=== PATIENT | male | born 1950 | race Caucasian/White ===

== ENCOUNTER → 2016-10-17 | Day surgery (SDC) | payer OTHER ==
[~2016-10-17] VITALS: Ht 180.3 cm; Wt 74.8 kg
[~2016-10-17] MED LIST: ASPIRIN EC81 M1 PO; FORFIVO XL450 MG PO; LAMICTAL100 M2 PO; METOPROLOL TART25 M1 PO; PRAVACHOL40 M1 PO; PRILOSEC OTC20 M1 PO; PRINIVIL10 M1 PO
--- NOTE | 2016-10-17 11:45 | Operative Report ---
Operative/Inv Procedure Report Surgery Date: 10/17/16 Name of Procedure: Left shoulder arthroscopy, extensive debridement, subacromial decompression, arthroscopic rotator cuff repair Pre-Operative Diagnosis: Left shoulder rotator cuff tear Post-Operative Diagnosis: Left shoulder rotator cuff tear Estimated Blood Loss: scant Surgeon/Vice President Fixed Income: TAMY LYNCH,DAVID RED Anesthesia: moderate sedation, block Complications: None Condition: Stable to PACU Operative Indication: This is a 66-year-old male with long-standing left shoulder pain. He has failed conservative care. He was noted to have a proximal biceps rupture several weeks ago. MRI showed a full-thickness rotator cuff tear. Risks and benefits of the procedure were discussed with the patient at length. Risks include but are not limited to nerve damage, muscle damage, infection, blood loss, blood clots, pulmonary embolus, and even . The patient agreed to the above risks and elected to proceed with surgery. Operative/Procedure Note Note: The patient was taken to the operating room and placed in the lateral decubitus position with the operative side up after anesthesia was induced. The upper extremity was prepped and draped in the normal sterile fashion. A timeout was performed prior to incision. The site marking was visualized prior to incision. IV antibiotics were given prior to incision. After the upper extremity was prepped and draped a spinal needle was used to insufflate the shoulder joint with saline. An 11 blade was used to incise the skin for the posterior portal placement. The cannula was then placed. The camera was inserted. An anterior portal was established just proximal and lateral to the coracoid with a spinal needle and an 11 blade. The diagnostic arthroscopy was then performed which showed the above findings. A shaver was used to debride the stump of the biceps tendon. A wand was also used to stabilize the base of this. A shaver was used to debride the anterior superior labrum. The shaver was then used to debride the undersurface of the infraspinatus tendon. The undersurface of the supraspinatus tear was also debrided. The shaver was then used to debride the leading edge of the subscapularis insertion. Next the subacromial space was entered through the posterior portal. A lateral portal was established with a spinal needle and an 11 blade. A blunt probe was inserted through the lateral portal. Next the shaver was inserted and a subacromial bursectomy was performed. Any bleeding vessels were identified and cauterized. The shaver was used to debride any bursal tissue on the undersurface of the acromion and surrounding the humeral head. The coracoacromial ligament was taken down with a wand. Care was taken to protect the rotator cuff tissue and only take bursal tissue. A wand was then used to further take down the soft tissue on the undersurface of the acromion. A bur was then inserted and the acromioplasty was then begun starting at the anterolateral edge of the acromion. This was extended down to the level of the acromioclavicular joint. This was then tapered further posteriorly. An 8 mm PassPort cannula was placed through the lateral portal site. A 6 mm PassPort cannula was placed through the anterior portal. An accessory portal was made just off of the lateral border the acromion with a spinal needle and an 11 blade. An 8 mm PassPort cannula was placed through this. The bur was used to prepare the rotator cuff footprint back to a healthy bed of bleeding bone for later rotator cuff repair. Any bursal adhesions superior to the rotator cuff were taken fadi with a shaver. A tap was used and a 5.5 mm helicoil anchor was placed just lateral to the articular surface in the rotator cuff footprint. An expressew needle was then used to shuttle the sutures from front to back. The medial row was tied down with a locking knot and several half hitches. The sutures were then crisscrossed over the top and fixed with 2 lateral row multi- fix anchors. An anchor was placed posterior to the bicipital groove. A second anchor was placed further posterior. This afforded excellent compression of the rotator cuff. The excess suture was then cut. A 1/8 inch Hemovac drain was placed through the posterior portal. All instruments were removed and the shoulder was copiously irrigated. The portal sites were closed with 3-0 nylon suture in a simple interrupted fashion. A dry sterile dressing was placed. A sling was applied. The patient was transferred to PACU in stable condition. Findings: Complete tear of the biceps tendon with an unstable root. Degenerative tearing of the anterior superior labrum. Mild partial thickness undersurface tearing of the infraspinatus. Partial tearing of the upper border of the subscapularis. Full-thickness tear of the supraspinatus tendon. No loose bodies noted. Humeral head articular cartilage with grade 1 chondral changes. Glenoid with grade 1 chondral changes. Subacromial hook present.
== END ==
LOC: STS 10-16 23:04
DX: M75.122 Complete rotator cuff tear or rupture of left shoulder, not specified as traumatic (principal); E78.00 Pure hypercholesterolemia, unspecified; I42.9 Cardiomyopathy, unspecified; Z87.891 Personal history of nicotine dependence
CPT/HCPCS: J0171; J0690; J2250; J2795